=== PATIENT | female | born 1980 | race Two or more races ===

== ENCOUNTER 2016-09-10 09:57 | Day surgery (SDC) | payer BC, OTHER ==
[2016-09-03 11:25] VITALS: BMI 47.8
[~2016-09-10 09:57] MED LIST: DEXAMETHASONE SOD PHOSPHATE 10 MG/ML 1 ML VIAL IV ONE; HEPARIN SODIUM,PORCINE 5,000 UNIT/ML 1 ML VIAL SQ ONE; HYDROmorphone 1 MG/ML 1 ML SYRINGE IVP PRN; LACTATED RINGERS 1,000 ML IV SCH; MIDAZOLAM 2 MG/2 ML VIAL IV PRN; ONDANSETRON 4 MG/2 ML VIAL IVP ONE; Pre Op ABX Message 1 EACH MISC MISCELLANE ONE; SCOPOLAMINE 1.5MG/72HR PATCH TRANSDERM ONE
[2016-09-10 10:32] VITALS: RESP 16; TEMP 97
[2016-09-10] MEDS ORDERED: LIDOCAINE 1% 20 ML VIAL (10MG/ML) FOR IV START INTRADERMA ONE (10:38)
--- NOTE | 2016-09-10 11:40 | P.GSHP ---
History of Present Illness H&P Date: 09/10/16 Chief Complaint: Back skin lesion This a 35-year-old female who presents today for excision of a back skin lesion. Patient developed the epidermal inclusion cyst of her left upper back. Past Medical History Past Medical History: GERD/Reflux History of Any Multi-Drug Resistant Organisms: None Reported Past Surgical History: Cholecystectomy Additional Past Surgical History / Comment(s): oophorectomy-not sure which side Past Anesthesia/Blood Transfusion Reactions: No Reported Reaction Smoking Status: Current every day smoker - Past Family History Mother Family Medical History: No Reported History Medications and Allergies Home Medications Medication Instructions Recorded Confirmed Type Famotidine [Pepcid] 20 mg PO DAILY 09/03/16 09/03/16 History Nicotine [Nicoderm Cq] 1 patch TRANSDERM DAILY PRN 09/03/16 09/03/16 History Allergies Allergy/AdvReac Type Severity Reaction Status Date / Time No Known Allergies Allergy Verified 09/10/16 10:13 Surgical - Exam Vital Signs Temp Pulse Resp BP Pulse Ox 97.0 F L 83 16 130/81 100 09/10/16 10:31 09/10/16 10:31 09/10/16 10:31 09/10/16 10:31 09/10/16 10:31 - General well developed, no distress - Eyes PERRL - ENT normal pinna - Neck no masses - Respiratory normal expansion - Cardiovascular Rhythm: regular - Abdomen Abdomen: soft, non tender - Integumentary 3 cm epidermal inclusion cyst of left upper back. There is no infection. Assessment and Plan Plan: Back skin lesion. We'll perform excision.
[2016-09-10] MEDS ORDERED: fentaNYL (PF) 50 MCG/ML 2 ML AMP ONE (12:12)
[2016-09-10] MEDS ORDERED: PROPOFOL 10 MG/ML 20 ML VIAL IV ONE (12:12)
[2016-09-10] MEDS ORDERED: LIDOCAINE 1% INJ 10MG/ML (20 ML MDV) ONE (12:12)
[2016-09-10] MEDS ORDERED: MIDAZOLAM 2 MG/2 ML VIAL ONE (12:12)
[2016-09-10] MEDS ORDERED: LIDOCAINE 1%-EPI 1:100,000 20 ML VIAL SQ ONE (12:34)
--- NOTE | 2016-09-10 12:44 | P.OP ---
Date of Procedure: 09/10/16 Preoperative Diagnosis: Back skin lesion Postoperative Diagnosis: Deferred pathology Procedure(s) Performed: Excision of back skin lesion Implants: Anesthesia: MAC Surgeon: Deniz Rizvi Pathology: other (Back skin lesion) Condition: stable Disposition: PACU Indications for Procedure: Operative Findings: Description of Procedure: The patient's placed on the operative table in the lateral position. She received IV sedation. The skin lesion was visualized and prepped and draped usual sterile fashion. The skin is anesthetized 1% local Xylocaine. Using a 15 blade in elliptical skin incision was made around the lesion. The lesion measured approximately 3 cm in length and 2 cm diameter. The bellies hemostasis. Skin was closed interrupted 3-0 Monocryl suture. Dermabond was applied. Patient was sent to recovery in stable condition.
[2016-09-10 13:19] VITALS: BP 117/71; PULSE 86
== END 2016-09-10 13:35 | disposition home or self-care (01) ==
LOC: OR 09:57
PROVIDERS: ATTEND Surgery
DX: D23.5 Other benign neoplasm of skin of trunk (principal); F17.200 Nicotine dependence, unspecified, uncomplicated; K21.9 Gastro-esophageal reflux disease without esophagitis; E66.01 Morbid (severe) obesity due to excess calories; Z68.42 Body mass index [BMI] 45.0-49.9, adult
CPT/HCPCS: 11404; 81025; 88305; 88342; 88341; J2250; J1644; J1100; J2405; J2001; J3010; J2704